=== PATIENT | male | born 1990 | race Two or more races ===

== ENCOUNTER 2017-01-17 09:06 | Emergency (ER) | payer OTHER ==
[~2017-01-17] VITALS: Ht 170.2 cm; Wt 72.6 kg
[2017-01-17] MEDS ORDERED: TdaP Vaccine 0.5ml Syr IM ONE (09:30)
[2017-01-17] MEDS ORDERED: Bacitracin Oint UD TOPIC ONE ×2 (10:08→10:15)
[2017-01-17] MEDS ORDERED: IBUPROFEN600 MG ORAL (10:45)
[2017-01-17] MEDS ORDERED: BACITRACIN1 APPLIC TOPIC (10:45)
[2017-01-17 10:52] VITALS: BP 111/70
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
== END 2017-01-17 10:54 | disposition home or self-care (01) ==
LOC: EDBD 09:06 → EMR 10:05
DX: S40.212A Abrasion of left shoulder, initial encounter (principal); V43.52XA Car driver injured in collision with other type car in traffic accident, initial encounter; Y92.410 Unspecified street and highway as the place of occurrence of the external cause; R07.81 Pleurodynia; Z23 Encounter for immunization
CPT/HCPCS: 90471; 90715; 96372; 99284